=== PATIENT | female | born 1965 | race Caucasian/White ===

== ENCOUNTER → 2019-02-03 | Outpatient (CLI) | payer OTHER ==
[~2019-02-03] MED LIST: ABAC300; ACET500 PO; ACETAMINOPHEN; ALBU90OI INH; ALPR.5 PO; AMIT75 PO; AZIT250 PO; Acidophilus La100 GM PO; BENZ100A PO; BUPR150ER PO; BUSP10 PO; CARI350; CARI350 PO; CEPH250A PO; CEPH500 PO; CLIN300 PO; CLON.2 PO; CLON1 PO; CYCL10 PO; DIVA500EC PO; DOCU100 PO; ERGO400 PO; FLUO10 PO; FLUO20 PO; GABA100; GABA300 PO; HYDACE5 PO; HYDACE5325 PO; HYDPAM25 PO; HYDROCODONE; Hydroxyzine HCl50 MG PO; IBUP200; Klonopin0.5 MG PO; LAMO25 PO; LEVO750 PO; METPHE10 PO; MIRALAX17 GM PO; MULVITMIND PO; NAPR220; NAPR500; OXYACE5C; OXYACE5T PO; OXYACE7.5T PO; POLYIRON PO; POTA10T PO; PRAZ2; PRAZ2 PO; PRED20 PO; Prednisone20 MG PO; ROBITUSSIN100 MG/5 M PO; ROXICODONE5 MG PO; RXHYDACE PO; RXOXYACE PO; RXTRAM50 PO; SUBOXONE 4 MG-1 EACH SL; SUMATRIPTAN-NA1 EACH PO; TOPI25; TRAM50 PO; Ultram50 MG PO; VERSED; WATER PILL
[2019-02-03 19:58] LABS: BASOPHILS ABSOLUTE AUTO 0.05 K/mm3 (0.00-0.23); BASOPHILS PERCENT AUTO 1 % (0-2); EOSINOPHILS ABSOLUTE AUTO 0.09 K/mm3 (0.00-0.68); EOSINOPHILS PERCENT AUTO 1 % (0-6); Hematocrit 40.9 % (33.0-51.0); Hemoglobin 12.5 g/dL (11.5-16.0); IMMATURE GRAN ABSOLUTE AUTO 0.01 K/mm3 (0.00-0.10); IMMATURE GRAN PERCENT AUTO 0 % (0-1); LYMPHOCYTES ABSOLUTE AUTO 1.63 K/mm3 (0.84-5.20); LYMPHOCYTES PERCENT AUTO 25 % (21-46); MONOCYTES ABSOLUTE AUTO 0.49 K/mm3 (0.16-1.47); MONOCYTES PERCENT AUTO 8 % (4-13); Mean Corpuscular HGB 28.2 pg (26.0-34.0); Mean Corpuscular HGB Conc 30.6 g/dL (31.5-36.5); Mean Corpuscular Volume 92 fL (80-100); Mean Platelet Volume 11.8 fL (9.1-12.4); NEUTROPHILS ABSOLUTE AUTO 4.26 K/mm3 (1.96-9.15); NEUTROPHILS PERCENT AUTO 65 % (41-73); Platelet Count 166 K/mm3 (150-400); RDW Coefficient Variation 18.8 % (11.7-14.2); RDW Standard Deviation 63.7 fL (35.1-46.3); Red Blood Cell Count 4.44 M/mm3 (3.80-5.20); White Blood Cell Count 6.53 K/mm3 (4.00-11.30)
[2019-02-03 20:23] LABS: Alanine Aminotransfer (ALT/SGP 80 U/L (12-78); Albumin, Blood 3.4 g/dL (3.4-5.0); Albumin/Globulin Ratio 0.9 (0.8-1.8); Alk Phos 189 U/L (50-136); Anion Gap 2 mmol/L (6-16); Aspartate Aminotrans (AST/SGOT 74 U/L (12-37); Bilirubin, Total 0.6 mg/dL (0.1-1.0); Blood Urea Nitrogen 15 mg/dL (8-24); Bun/Creatinine Ratio 19.4 (12.0-20.0); CO2, Blood 29 mmol/L (21-32); Calcium, Blood 8.7 mg/dL (8.5-10.1); Chloride, Blood 108 mmol/L (98-108); Creatinine, Blood 0.77 mg/dL (0.40-1.00); Globulin, Blood 3.9 g/dL (2.2-4.0); Glomerular Filtration Rate >60 (60-); Glucose, Blood 98 mg/dL (70-99); Potassium, Blood 3.8 mmol/L (3.5-5.5); Sodium, Blood 139 mmol/L (136-145); Total Protein, Blood 7.3 g/dL (6.4-8.2)
== END | disposition home or self-care (01) ==
LOC: LAB 19:18 → LAB SHORT 19:18
PROVIDERS: Nurse Practitioner
DX: N93.9 Abnormal uterine and vaginal bleeding, unspecified (principal); R31.9 Hematuria, unspecified; R10.2 Pelvic and perineal pain
CPT/HCPCS: 80053; 85025; 87086

== ENCOUNTER 2019-03-05 21:49 | Emergency (ER) | payer OTHER ==
[~2019-03-05] VITALS: Ht 165.1 cm; Wt 94.8 kg
[~2019-03-05 21:49] MED LIST changes: -ACET500 PO; -GABA100; -POTA10T PO; -SUBOXONE 4 MG-1 EACH SL; -TOPI25; -WATER PILL
[2019-03-05] MEDS ORDERED: TOPI25 (22:02)
[2019-03-05] MEDS ORDERED: SUBOXONE 4 MG-1 EACH SL (22:02)
[2019-03-05] MEDS ORDERED: GABA100 (22:02)
[2019-03-05] MEDS ORDERED: WATER PILL (22:03)
[2019-03-05] MEDS ORDERED: POTA10T PO (22:03)
[2019-03-05] MEDS ORDERED: ACET500 PO (22:53)
== END 2019-03-05 23:10 | disposition home or self-care (01) ==
LOC: ER 21:49
DX: S20.212A Contusion of left front wall of thorax, initial encounter (principal); S80.212A Abrasion, left knee, initial encounter; F41.9 Anxiety disorder, unspecified; Z86.19 Personal history of other infectious and parasitic diseases; Z88.0 Allergy status to penicillin; Z88.5 Allergy status to narcotic agent; Z88.6 Allergy status to analgesic agent; Z79.899 Other long term (current) drug therapy; Z87.891 Personal history of nicotine dependence; W06.XXXA Fall from bed, initial encounter
CPT/HCPCS: 71046; 73564; 73610; 99283-25

== ENCOUNTER 2020-09-13 22:06 | Emergency (ER) | payer OTHER ==
[~2020-09-13] VITALS: Ht 167.6 cm; Wt 59.9 kg
[~2020-09-13 22:06] MED LIST changes: +ACET500 PO; +GABA100; +POTA10T PO; +SUBOXONE 4 MG-1 EACH SL; +TOPI25; +WATER PILL
== END 2020-09-13 23:33 | disposition home or self-care (01) ==
LOC: ER 22:06
DX: S93.602A Unspecified sprain of left foot, initial encounter (principal); F17.210 Nicotine dependence, cigarettes, uncomplicated; Z79.899 Other long term (current) drug therapy; Z88.0 Allergy status to penicillin; Z88.5 Allergy status to narcotic agent; Z88.6 Allergy status to analgesic agent; X50.1XXA Overexertion from prolonged static or awkward postures, initial encounter
CPT/HCPCS: 29515; 73630; 99283-25

== ENCOUNTER 2020-12-18 22:52 | Emergency (ER) | payer OTHER ==
[~2020-12-18] VITALS: Ht 167.6 cm; Wt 60.8 kg
== END 2020-12-19 01:38 | disposition home or self-care (01) ==
LOC: ER 22:52
DX: S20.211A Contusion of right front wall of thorax, initial encounter (principal); Z87.891 Personal history of nicotine dependence; Z88.0 Allergy status to penicillin; Z88.5 Allergy status to narcotic agent; Z88.6 Allergy status to analgesic agent; W01.198A Fall on same level from slipping, tripping and stumbling with subsequent striking against other object, initial encounter; Y92.59 Other trade areas as the place of occurrence of the external cause
CPT/HCPCS: 71046; 96372; 99283-25; J1885

== ENCOUNTER 2021-09-19 18:01 | Emergency (ER) | payer OTHER ==
[~2021-09-19] VITALS: Ht 167.6 cm; Wt 59.0 kg
== END 2021-09-19 21:03 | disposition home or self-care (01) ==
LOC: ER 18:01
DX: M54.2 Cervicalgia (principal); G47.419 Narcolepsy without cataplexy; Z88.0 Allergy status to penicillin; Z88.5 Allergy status to narcotic agent; Z88.6 Allergy status to analgesic agent; Z79.899 Other long term (current) drug therapy; Z87.891 Personal history of nicotine dependence; W19.XXXA Unspecified fall, initial encounter
CPT/HCPCS: 70450; 72040; 99283-25; L0160

== ENCOUNTER 2021-12-30 20:59 | Emergency (ER) | payer OTHER ==
[~2021-12-30] VITALS: Ht 167.6 cm; Wt 59.0 kg
== END 2021-12-31 03:20 | disposition home or self-care (01) ==
LOC: ER 20:59
DX: S01.01XA Laceration without foreign body of scalp, initial encounter (principal); S01.111A Laceration without foreign body of right eyelid and periocular area, initial encounter; S10.93XA Contusion of unspecified part of neck, initial encounter; Y09 Assault by unspecified means; Z88.0 Allergy status to penicillin; Z88.5 Allergy status to narcotic agent; Z88.6 Allergy status to analgesic agent; Z79.899 Other long term (current) drug therapy; Z87.891 Personal history of nicotine dependence; Z23 Encounter for immunization
CPT/HCPCS: 70450; 72125; 90714; A9270; J1200; J2765

== ENCOUNTER 2022-01-07 16:21 | Emergency (ER) | payer OTHER ==
[~2022-01-07] VITALS: Ht 167.6 cm; Wt 59.0 kg
== END 2022-01-07 18:01 | disposition home or self-care (01) ==
LOC: ER 16:21
DX: Z48.02 Encounter for removal of sutures (principal); R11.0 Nausea; Z88.0 Allergy status to penicillin; Z88.5 Allergy status to narcotic agent; Z88.6 Allergy status to analgesic agent; Z79.899 Other long term (current) drug therapy; Z87.891 Personal history of nicotine dependence
CPT/HCPCS: A9270; J1885

== ENCOUNTER 2022-06-19 10:16 | Inpatient (IN) | payer OTHER ==
[~2022-06-19] VITALS: Ht 172.7 cm; Wt 64.8 kg
[2022-06-19 11:39] LABS: BASOPHILS ABSOLUTE AUTO 0.01 K/mm3 (0.00-0.23); BASOPHILS PERCENT AUTO 0 % (0-2); EOSINOPHILS ABSOLUTE AUTO 0.01 K/mm3 (0.00-0.68); EOSINOPHILS PERCENT AUTO 0 % (0-6); Hematocrit 31.4 % (33.0-51.0); Hemoglobin 10.9 g/dL (11.5-16.0); IMMATURE GRAN ABSOLUTE AUTO 0.02 K/mm3 (0.00-0.10); IMMATURE GRAN PERCENT AUTO 0 % (0-1); LYMPHOCYTES ABSOLUTE AUTO 0.43 K/mm3 (0.84-5.20); LYMPHOCYTES PERCENT AUTO 9 % (21-46); MONOCYTES ABSOLUTE AUTO 0.13 K/mm3 (0.16-1.47); MONOCYTES PERCENT AUTO 3 % (4-13); Mean Corpuscular HGB 38.2 pg (26.0-34.0); Mean Corpuscular HGB Conc 34.7 g/dL (31.5-36.5); Mean Corpuscular Volume 110 fL (80-100); Mean Platelet Volume 10.1 fL (9.1-12.4); NEUTROPHILS ABSOLUTE AUTO 4.44 K/mm3 (1.96-9.15); NEUTROPHILS PERCENT AUTO 88 % (41-73); Platelet Count 123 K/mm3 (150-400); RDW Coefficient Variation 13.1 % (11.7-14.2); RDW Standard Deviation 52.6 fL (35.1-46.3); Red Blood Cell Count 2.85 M/mm3 (3.80-5.20); White Blood Cell Count 5.04 K/mm3 (4.00-11.30)
[2022-06-19] MEDS ORDERED: DYAZIDE 37.5-21 EACH PO (11:52)
[2022-06-19] MEDS ORDERED: ALBU90OI INH (11:53)
[2022-06-19] MEDS ORDERED: POTA10T PO (11:53)
[2022-06-19] MEDS ORDERED: NICO21TP TOP (11:53)
[2022-06-19] MEDS ORDERED: LATUDA20 M1 PO (11:53)
[2022-06-19] MEDS ORDERED: FOLI1 PO (11:53)
[2022-06-19] MEDS ORDERED: GABA300 PO ×2 (11:53→11:56)
[2022-06-19] MEDS ORDERED: TRAZ50 PO (11:54)
[2022-06-19] MEDS ORDERED: PROM25 PO (11:54)
[2022-06-19] MEDS ORDERED: METO25ER PO (11:54)
[2022-06-19] MEDS ORDERED: CATAPRES-TTS 11 EAC1 TOP (11:54)
[2022-06-19] MEDS ORDERED: Prozac40 MG PO (11:55)
[2022-06-19] MEDS ORDERED: Cyclobenzaprine5 MG PO (11:55)
[2022-06-19] MEDS ORDERED: MODA200 PO (11:55)
[2022-06-19] MEDS ORDERED: HYDPAM50 PO (11:55)
[2022-06-19] MEDS ORDERED: TOPI100 PO (11:55)
[2022-06-19] MEDS ORDERED: NARA2.5 (11:55)
[2022-06-19] MEDS ORDERED: METPHE20CR PO (11:56)
[2022-06-19] MEDS ORDERED: BUDESONIDE0.5 MG/2 M INH (11:56)
[2022-06-19] MEDS ORDERED: LORA.5 PO (11:56)
[2022-06-19] MEDS ORDERED: SUBOXONE 8 MG-1 EACH SL (11:56)
[2022-06-19 12:09] LABS: Magnesium, Blood 1.8 mg/dL (1.6-2.4)
[2022-06-19 12:41] LABS: Alanine Aminotransfer (ALT/SGP 28 U/L (12-78); Albumin/Globulin Ratio 1.1 (0.8-1.8); Alk Phos 153 U/L (50-136); Anion Gap 5 mmol/L (6-16); Aspartate Aminotrans (AST/SGOT 33 U/L (12-37); Bilirubin, Total 0.4 mg/dL (0.1-1.0); Blood Urea Nitrogen 13 mg/dL (8-24); Bun/Creatinine Ratio 25.3 (12.0-20.0); CO2, Blood 23 mmol/L (21-32); Calcium, Blood 8.2 mg/dL (8.5-10.1); Chloride, Blood 107 mmol/L (98-108); Creatinine, Blood 0.51 mg/dL (0.40-1.00); Ethanol (Alcohol), Blood, Med <3 mg/dL; Globulin, Blood 2.7 g/dL (2.2-4.0); Glomerular Filtration Rate 110 (60-); Glucose, Blood 117 mg/dL (70-99); Potassium, Blood 3.6 mmol/L (3.5-5.5); Sodium, Blood 135 mmol/L (136-145); Total Protein, Blood 5.7 g/dL (6.4-8.2)
[2022-06-19 14:24] LABS: Source, Urine Straight Cath
[2022-06-19 14:28] LABS: Appearance, Urine Cloudy (Clear); Bilirubin, Urine Neg (Neg); Blood, Urine 1+ (Neg); Glucose Qualitative, Urine Neg (Neg); Ketones, Urine Neg (Neg); Leukocyte Esterase, Urine Neg (Neg); Nitrite, Urine Neg (Neg); Protein, Urine Neg (Neg); Urobilinogen, Urine NORM (Normal)
[2022-06-19 14:34] LABS: Base Excess Venous -1.1 mmol/L; Bicarbonate Venous 23.2 mmol/L (24.0-30.0); PCO2 Venous 46.2 mmHg (38-42); pH Blood Venous 7.34 (7.34-7.37)
[2022-06-19 14:38] LABS: Color, Urine Pale Yellow (P-Yellow)
[2022-06-19 14:42] LABS: Bacteria Mod /hpf; Red Blood Cells, Urine 0-2 /hpf (0-2); Squamous Epithelial Cells Rare /hpf (Few)
[2022-06-19 15:47] LABS: U Amphetamine Screen Not Detected; U Barbituate Screen Not Detected; U Benzodiazapine Screen DETECTED; U Buprenorphine Screen DETECTED; U Cannabinoids Screen Not Detected; U Cocaine Screen Not Detected; U Methadone Screen Not Detected; U Methamphetamine Screen Not Detected; U Opiates Screen Not Detected; U Oxycodone Screen Not Detected; U Phencyclidine Screen Not Detected; U Propoxyphene Screen Not Detected
--- NOTE | 2022-06-19 17:24 | NUR ---
PT ARRIVES TO ICU BED 1 @ 1700, PT ANSWERS TO HER NAME, PT STATES SHE IS AT THE HOSPITAL, THAT IT IS AUGUST 18, 2020, THAT HER LAST DRINK WAS TODAY, AND THAT SHE HAS HISTORY OF SEIZURES WITH ALCOHOL USE. PT ASKS ABOUT HER LOWER DENTURES, ED REPORTS PATIENT ARRIVED WITH ONLY THE SCRUBS SHE WAS WEARING. FOLIC ACID INFUSED, THIAMINE HUNG, PRECEDEX @ 0.2MCG/KG. SEE ASSESSMENT.
[2022-06-19] MEDS ORDERED: NICOTINE LOZENGE2 MG MM (17:35)
[2022-06-19] MEDS ORDERED: IBUP400 PO (17:36)
[2022-06-19] MEDS ORDERED: ACET500 PO (17:37)
[2022-06-19] MEDS ORDERED: CATAPRES0.1 MG PO (17:39)
[2022-06-19] MEDS ORDERED: SYMBICORT 160-4.6 GM INH (17:44)
--- NOTE | 2022-06-19 18:59 | NUR ---
GELA HAS BEEN SLEEPING SINCE ADMISSION. SHE IS ON PRECEDEX @ 0.2MCG/KG. JUST PHONED IN, ASKED TO SPEAK WITH HER. INFORMED THAT SHE WAS SLEEPING AND HE SAID, "THANK YOU". NOTHING FURTHER.
--- NOTE | 2022-06-20 03:53 | NUR ---
PT TONIGHT HAD AN OUTBURST AROUND 2300 ATTEMPTING TO GET OUT OF BED AND DEMANDING FOOD/WATER. PT WITH EYES STILL CLOSED THE ENTIRE TIME SHES ATTEMPTING TO GET OUT OF BED AND CONFUSED. CIWA SCORE OF 9. 25 OF LIBRIUM GIVEN PER MAR. INCREASED DEX WELL. SEE ICU FLOWSHEET AND MAR. VSS. BPS SOFTER WHEN SLEEPING, MAPS >65. HR WNL. NSR. NO OTHER SIGNIFICANT EVENTS OVERNIGHTS.
--- NOTE | 2022-06-20 07:37 | NUR ---
Dorothea has awakened and asked for water. Her swallow is not compromised. Will continue to monitor and treat.
--- NOTE | 2022-06-20 07:57 | NUR ---
precedex is on standby, pt oriented, talking on the phone with family.
--- NOTE | 2022-06-20 12:09 | NUR ---
PT APPEARS TO BE SLEEPING, HAVE BEEN CHECKING ON HER AND SHE IS RESTFUL. NO COMPLAINTS AT THIS TIME.
--- NOTE | 2022-06-20 13:49 | NUR ---
GELA IS AWAKE AND FIESTY. SHE IS ASKING ABOUT HER MEDICATIONS, WHEN TOLD THAT THEY HAVE BEEN ORDERED TO START TONIGHT, SHE BECAME AGIATED. IT WAS EXPLAINED TO HER THAT SHE CAME IN UNCONSCIOUS AND HER MEDICATIONS WEREN'T GOING TO BE RESTARTED WITHOUT SEEING EVIDENCE OF IMPROVEMENT. WITH HER EATING AND DRINKING WELL NOW, HER MEDICATIONS ARE BEING RESTARTED. SHE EXPRESSES THAT SHE "GOES IN TO GET HELP AND THEY KILL ME!". THERAPEUTIC LISTENING AND POSITIVE REINFORCEMENT GIVEN.
--- NOTE | 2022-06-20 14:44 | NUR ---
GELA IS AWAKE AND COMMUNICATING CLEARLY, HER SON WAS JUST IN TO VISIT. HER CATHETER HAS BEEN REMOVED, PANTIES AND PJ PANTS ARE NOW ON FOR HER COMFORT. SHE IS BEING MORE COOPERATIVE AND HELPING WITH HER CARE. SHE HAS BEEN ASKED TO CALL BEFORE GETTING UP FOR THE FIRST TIME. CONTINUES TO SAY HER BELLY IS "SORE". SHE WONDERED IF SHE HAD THROWN UP OR IF SOMEONE HAD "MANHANDLED" HER.
--- NOTE | 2022-06-20 15:55 | NUR ---
UP TO THE BATHROOM, STEADY ON HER FEET. DAUGHTER IN TO VISIT, BROUGHT PATIENT SOME SODA POP'S.
--- NOTE | 2022-06-20 17:57 | NUR ---
PT REMAINS CALM AND COOPERATIVE. INDEPENDENT IN ROOM. DINNER TRAY ORDERED. CIWA <10, LIBRIUM PER PT REQUEST.
[2022-06-21 04:47] LABS: BASOPHILS ABSOLUTE AUTO 0.02 K/mm3 (0.00-0.23); BASOPHILS PERCENT AUTO 0 % (0-2); EOSINOPHILS ABSOLUTE AUTO 0.06 K/mm3 (0.00-0.68); EOSINOPHILS PERCENT AUTO 1 % (0-6); Hematocrit 32.6 % (33.0-51.0); Hemoglobin 11.3 g/dL (11.5-16.0); IMMATURE GRAN ABSOLUTE AUTO 0.05 K/mm3 (0.00-0.10); IMMATURE GRAN PERCENT AUTO 1 % (0-1); LYMPHOCYTES PERCENT AUTO 21 % (21-46); MONOCYTES PERCENT AUTO 9 % (4-13); Mean Corpuscular HGB Conc 34.7 g/dL (31.5-36.5); Mean Corpuscular Volume 112 fL (80-100); Mean Platelet Volume 10.9 fL (9.1-12.4); NEUTROPHILS ABSOLUTE AUTO 4.02 K/mm3 (1.96-9.15); NEUTROPHILS PERCENT AUTO 69 % (41-73); Platelet Count 131 K/mm3 (150-400); RDW Coefficient Variation 13.7 % (11.7-14.2); RDW Standard Deviation 56.6 fL (35.1-46.3); White Blood Cell Count 5.85 K/mm3 (4.00-11.30)
--- NOTE | 2022-06-21 04:49 | NUR ---
END OF SHIFT REPORT NEURO: A&OX4. PT CLAIMS NUMBNESS/TINGLING TO FINGERTIPS. DENIES HEADACHE OR VISION CHANGES. ABLE TO DISCERN SHARP/DULL SENSATIONS IN ALL FOUR EXTREMITIES. AND ALL FOUR LIMBS ABLE TO OVERCOME RESISTANCE. PUPILS 4MM PERRLA. RESPIRATORY: RA. SATTING >95%. BREATH SOUNDS CLEAR. PT DENIES SOB/DYSPNEA. CARDIAC: HR 60s. BP 100s/70s WITH MAPs >65. PT DENIES CHEST PAIN. CAP REFILL < 3 SECONDS. GI/: CONTINENT. HYPOACTIVE BOWEL SOUNDS. PT CLAIMS HER ABDOMEN FEELS LIKE SOMEONE GAVE HER A "BEAR HUG" AND THAT HER MUSCLES AROUND ABDOMEN ACHE. URGENCY AND FREQUENCY OF BLADDER. PUTTING OUT ADEQUATE AMOUNTS OF CLEAR YELLOW URINE. MUSCULOSKELETAL: INDEPENDENT IN ROOM. INTEGUMENTARY: INTACT.
[2022-06-21 05:16] LABS: Albumin, Blood 2.5 g/dL (3.4-5.0); Anion Gap 7 mmol/L (6-16); Blood Urea Nitrogen 16 mg/dL (8-24); Bun/Creatinine Ratio 23.4 (12.0-20.0); CO2, Blood 25 mmol/L (21-32); Calcium, Blood 7.9 mg/dL (8.5-10.1); Chloride, Blood 106 mmol/L (98-108); Creatinine, Blood 0.69 mg/dL (0.40-1.00); Glomerular Filtration Rate 102 (60-); Glucose, Blood 98 mg/dL (70-99); Magnesium, Blood 2.1 mg/dL (1.6-2.4); Potassium, Blood 3.4 mmol/L (3.5-5.5); Sodium, Blood 138 mmol/L (136-145)
--- NOTE | 2022-06-21 17:06 | NUR ---
SHIFT SUMMARY PT IS ALERT AND ORIENTED X 4, SHE IS ABLE TO MAKE HER NEEDS KNOWN AND ANSWERS QUESTIONS APPROPRIATELY. SHE DOES APPEAR TREMULOUS AT TIMES BUT THERE WAS NO INDICATION THAT CIWA'S WERE NECESSARY. SHE HAS BEEN A SBA IN ROOM AND IS STEADY ON HER FEET. VSS, SPO2 >95% VIA ROOM AIR. THIS AM SHE REPORTED FEELING SOB UPON INSPIRATION DUE TO ABD PAIN, PLEASE SEE EMAR FOR PAIN MANAGEMENT. THIS NURSE MADE DR. CANELA AWARE THAT PT WAS HAVING ABD PAIN AND THAT PT REPORTED NOT HAVING BM SINCE ADMISSION. BOWEL CARE ORDERED. PT ENCOURAGED TO DRINK WATER AND PRUNE JUICE WELL. SHE REPORTED FEELING SLIGHTLY NAUSEOUS THIS AM BUT HAS HAD A GOOD APPETITE. DRY, NON-PRODUCTIVE COUGH NOTED. NO OTHER ACUTE CHANGES NOTED. PT IS NOW SITTING UP IN BED EATING DINNER. CALL LIGHT IS IN REACH. WILL CONTINUE TO MONITOR UNITL REPORT GIVEN.
--- NOTE | 2022-06-21 19:33 | NUR ---
ASSUMED CARE. AOX3, COOPERATIVE. INDEPENDENT IN THE ROOM. REPORTS ABDOMINAL PAIN WHEN SHE MOVES OR TRYS TO SIT UP. STATES IT FEELS LIKE SHE HAS BEEN VOMITING HARD BUT SHE HASN'T. ONLY HURTS WHEN SHE TAKES A DEEP BREATH OR WITH MOVEMENT. BELCHING NOTED, SMALL BM TODAY. NOT PASSING GAS. TOLERATING DIET, STATES APPETITE GOOD. VITALS STABLE AT THE MOMENT. WILL CONTINUE TO MONITOR. CALL LIGHT IN REACH.
[2022-06-22 04:37] LABS: BASOPHILS ABSOLUTE AUTO 0.02 K/mm3 (0.00-0.23); BASOPHILS PERCENT AUTO 0 % (0-2); EOSINOPHILS ABSOLUTE AUTO 0.04 K/mm3 (0.00-0.68); EOSINOPHILS PERCENT AUTO 1 % (0-6); Hematocrit 31.7 % (33.0-51.0); Hemoglobin 10.5 g/dL (11.5-16.0); IMMATURE GRAN ABSOLUTE AUTO 0.04 K/mm3 (0.00-0.10); IMMATURE GRAN PERCENT AUTO 1 % (0-1); LYMPHOCYTES ABSOLUTE AUTO 0.82 K/mm3 (0.84-5.20); LYMPHOCYTES PERCENT AUTO 15 % (21-46); MONOCYTES ABSOLUTE AUTO 0.41 K/mm3 (0.16-1.47); MONOCYTES PERCENT AUTO 7 % (4-13); Mean Corpuscular HGB 38.3 pg (26.0-34.0); Mean Corpuscular HGB Conc 33.1 g/dL (31.5-36.5); Mean Corpuscular Volume 116 fL (80-100); NEUTROPHILS PERCENT AUTO 76 % (41-73); Platelet Count 122 K/mm3 (150-400); RDW Coefficient Variation 14.2 % (11.7-14.2); Red Blood Cell Count 2.74 M/mm3 (3.80-5.20); White Blood Cell Count 5.53 K/mm3 (4.00-11.30)
[2022-06-22 05:15] LABS: Albumin, Blood 2.3 g/dL (3.4-5.0); Anion Gap 5 mmol/L (6-16); Blood Urea Nitrogen 14 mg/dL (8-24); Bun/Creatinine Ratio 23.3 (12.0-20.0); CO2, Blood 23 mmol/L (21-32); Calcium, Blood 7.8 mg/dL (8.5-10.1); Chloride, Blood 110 mmol/L (98-108); Glomerular Filtration Rate 106 (60-); Glucose, Blood 156 mg/dL (70-99); Phosphorus, Blood 3.8 mg/dL (2.5-4.9); Potassium, Blood 3.7 mmol/L (3.5-5.5); Sodium, Blood 138 mmol/L (136-145)
--- NOTE | 2022-06-22 05:21 | NUR ---
SHIFT SUMMARY: PT HAS BEEN COOPERATIVE AND PLEASANT. INDEPENDENT IN THE ROOM. VS WNL. ONLY COMPLAINT IS SOME ABDOMINAL PAIN THAT COMES AND GOES. MORE INTENSE WHEN SHE IS MOVEING OR TAKING A DEEP BREATH. STATES IT FEELS LIKE SHE HAS BEEN VOMITING AND PULLED MUSCLES. DID HAVE SMALL BOWEL MOVEMENT. GOOD APPETITE, SNACKING OFF AND ON. NO OTHER ACUTE CHANGES TO NOTE.
--- NOTE | 2022-06-22 07:13 | NUR ---
Assumed care of pt at 0700. Report received from Sheron BRIDGES. Pt A&O x 4. Answers questions, follows commands, verbalizes needs. Pleasant and cooperative with care. SpO2 100% on room air. Patient states that she feels withdrawals are over, but is concerned because she is experiencing abdominal tenderness. Offered pt prune juice; she declined and stated that she has had 3 large, normal for her, bowel movements. Offered pt heating pad and she accepted. Dr Stack in to see patient. Provider aware of abd pain and orders lipase levels. Provider okay with holding off on administering PO potassium until pt's abdominal pain lessens.
--- NOTE | 2022-06-22 08:45 | NUR ---
Notified Dr Stack of pt's lipase level. Provider to enter new orders. States that pt is still permitted to eat regular diet as she tolerates. May consider regressing diet if patient experiences worsening symptoms.
--- NOTE | 2022-06-22 11:42 | NUR ---
Patient stated concern that we are not prescribing her the amount of ritalin she takes at home. States that she takes 30 mg ritalin at 9 am and noon. Received records from [facility] that confirms this. Discussed with Dr Stack and ritalin order was changed to match pt's typical home dose.
[2022-06-22] MEDS ORDERED: FOLI1 PO (13:56)
[2022-06-22] MEDS ORDERED: NARATRIPTAN HCL1 MG PO (14:06)
--- NOTE | 2022-06-22 14:14 | NUR ---
Medication claim history for past 3 months received from [facility] which is pharmacy that patient uses. Medication reconciliation updated using medication claim history.
--- NOTE | 2022-06-22 14:32 | NUR ---
CARE SUMMARY Pt is medical floor status without telemetry. Originally planned for pt to go home today, however this was changed due to pt's abdominal pain and high lipase level with concern for pancreatitis. Patient reports pain in all abdominal quadrants, however worse in LUQ. Also reports back pain. No abdominal or flank bruising noted. Pt has been using hospital heating pad as she desires and requesting morphine. Pt continues with regular diet. Pt ate a large breakfast and reported feeling pain which she attributes to being "too full". For lunch time, educated pt on the role of the pancreas in digestion and how certain food choices can increase abdominal pain. Pt ate some of her lunch tray but also saved a large portion "for later". Patient is independent in room and tolerating activity well. Discussed patient's past history of substance use disorder and desires to remain sober from alcohol. Patient states that she and her are quitting together and this decision was made following an appointment with her primary care provider discussing "my liver is bad, worse than when I had hepatitis". She also states plan to persue inpatient alcohol rehab if her s/o begins drinking again "So i can have more sober time and learn more skills". Pt seems highly motivated to abstain from alcohol.
--- NOTE | 2022-06-22 15:16 | NUR ---
Assumed care at 1505. Report received from offgoing RN. Pt currently resting in bed, alert and oriented, on room air. Pt denies needs at this time, in no apparent distress. Will continue to monitor.
--- NOTE | 2022-06-22 17:44 | NUR ---
Transferred care to Jenifer BRIDGES at 1745. Pt in bed, at bedside. VS stable, no acute needs.
[2022-06-23 05:25] LABS: BASOPHILS ABSOLUTE AUTO 0.01 K/mm3 (0.00-0.23); BASOPHILS PERCENT AUTO 0 % (0-2); EOSINOPHILS PERCENT AUTO 0 % (0-6); Hematocrit 31.4 % (33.0-51.0); Hemoglobin 10.6 g/dL (11.5-16.0); IMMATURE GRAN ABSOLUTE AUTO 0.08 K/mm3 (0.00-0.10); IMMATURE GRAN PERCENT AUTO 2 % (0-1); LYMPHOCYTES PERCENT AUTO 7 % (21-46); MONOCYTES ABSOLUTE AUTO 0.25 K/mm3 (0.16-1.47); MONOCYTES PERCENT AUTO 5 % (4-13); Mean Corpuscular HGB 38.1 pg (26.0-34.0); Mean Corpuscular HGB Conc 33.8 g/dL (31.5-36.5); Mean Corpuscular Volume 113 fL (80-100); Mean Platelet Volume 9.9 fL (9.1-12.4); NEUTROPHILS ABSOLUTE AUTO 4.67 K/mm3 (1.96-9.15); NEUTROPHILS PERCENT AUTO 86 % (41-73); Platelet Count 161 K/mm3 (150-400); RDW Coefficient Variation 13.8 % (11.7-14.2); RDW Standard Deviation 57.8 fL (35.1-46.3); Red Blood Cell Count 2.78 M/mm3 (3.80-5.20); White Blood Cell Count 5.41 K/mm3 (4.00-11.30)
--- NOTE | 2022-06-23 05:48 | NUR ---
SHIFT SUMMARY ICU TRANSFER ROUGHLY 0130. HAS BEEN FEBRILE SINCE TRANSFER, REPORTING "FEELING COLD" & SHIVERING. TEMP BEING 103.6 ORALLY @0130. GAVE 500MG PO TYLENOL & REMOVED SOME BLANKETS. TEMP 102.7, THEN 101.3-INFORMED DR SUAREZ NOT TIME FOR Q6 TYLENOL & HE ORDERED 1X DOSE 200MG IBPROPHEN. PO TEMP DECREASED TO 100.2. REST OF VITALS STABLE. AOX3-FORGETFUL @TIMES & SLOW TO RESPOND. HOWEVER DOES ANSWER APPROPRIATE. REPORTS SHARP 9/10 BILAT UPPER QUAD ABD PAIN, MEDICATED 2X c 2MG IV MORPHINE & PT ABLE TO REST COMFORTABLE. DENIES N/V. TOLERATING PO FLUIDS/MEDS. ACTIVE BT. REPORTED RAI @TRANSFER, WAS TREMULOUS & SLIGHTLY NONSENSICAL- CHECKED CIWA & GOT 8. HOWEVER PT HAD FEVER AT THIS TIME, CIWA 0 SINCE. CALL LIGHT IN REACH & PT ABLE TO MAKE NEEDS KNOWN. WILL MONITOR.
[2022-06-23 06:06] LABS: Magnesium, Blood 1.9 mg/dL (1.6-2.4)
[2022-06-23 06:07] LABS: Albumin, Blood 2.4 g/dL (3.4-5.0); Albumin/Globulin Ratio 0.8 (0.8-1.8); Bilirubin, Total 0.5 mg/dL (0.1-1.0); Bun/Creatinine Ratio 13.7 (12.0-20.0); Calcium, Blood 7.8 mg/dL (8.5-10.1); Creatinine, Blood 0.58 mg/dL (0.40-1.00); Globulin, Blood 3.1 g/dL (2.2-4.0); Potassium, Blood 3.6 mmol/L (3.5-5.5); Total Protein, Blood 5.5 g/dL (6.4-8.2)
[2022-06-23 16:44] LABS: Source, Urine Clean Catch
[2022-06-23 16:47] LABS: Appearance, Urine Clear (Clear); Bilirubin, Urine Neg (Neg); Blood, Urine 1+ (Neg); Color, Urine Yellow (P-Yellow); Glucose Qualitative, Urine Neg (Neg); Ketones, Urine Neg (Neg); Leukocyte Esterase, Urine Neg (Neg); Nitrite, Urine Neg (Neg); Protein, Urine Neg (Neg); Specific Gravity, Urine 1.015 (1.003-1.022); Urobilinogen, Urine 1+ (Normal)
[2022-06-23 17:03] LABS: Bacteria Few /hpf; Red Blood Cells, Urine 0-2 /hpf (0-2); Squamous Epithelial Cells Rare /hpf (Few); White Blood Cells, Urine 0-2 /hpf (0-5)
--- NOTE | 2022-06-24 03:56 | NUR ---
SHIFT SUMMARY PATIENT AOX4, IND TO BATHROOM. FEVER AT START OF SHIFT OF 102.3 MEDICATED WITH TYLENOL AND REMOVED HEAVY LINEN FROM BED. TEMP DOWN TO 100.1. MEDICATED FOR PAIN T/O SHIFT. TOLERATES WELL. VOIDING AND HAVING STOOLS THIS SHIFT. RECIEVING ABX FOR ACUTE PANCREATITIS. DENIES N/V, TOLERATE PO INTAKE. USES CALL LIGHT APPROPRIATELY, VSS.
[2022-06-24 05:11] LABS: BASOPHILS ABSOLUTE AUTO 0.02 K/mm3 (0.00-0.23); BASOPHILS PERCENT AUTO 0 % (0-2); EOSINOPHILS ABSOLUTE AUTO 0.01 K/mm3 (0.00-0.68); EOSINOPHILS PERCENT AUTO 0 % (0-6); Hematocrit 33.1 % (33.0-51.0); Hemoglobin 11.5 g/dL (11.5-16.0); IMMATURE GRAN ABSOLUTE AUTO 0.04 K/mm3 (0.00-0.10); IMMATURE GRAN PERCENT AUTO 1 % (0-1); LYMPHOCYTES ABSOLUTE AUTO 0.43 K/mm3 (0.84-5.20); LYMPHOCYTES PERCENT AUTO 8 % (21-46); MONOCYTES ABSOLUTE AUTO 0.28 K/mm3 (0.16-1.47); MONOCYTES PERCENT AUTO 5 % (4-13); Mean Corpuscular HGB Conc 34.7 g/dL (31.5-36.5); Mean Corpuscular Volume 112 fL (80-100); Mean Platelet Volume 9.7 fL (9.1-12.4); NEUTROPHILS ABSOLUTE AUTO 4.84 K/mm3 (1.96-9.15); NEUTROPHILS PERCENT AUTO 86 % (41-73); Platelet Count 190 K/mm3 (150-400); RDW Coefficient Variation 13.7 % (11.7-14.2); RDW Standard Deviation 56.8 fL (35.1-46.3); Red Blood Cell Count 2.95 M/mm3 (3.80-5.20); White Blood Cell Count 5.62 K/mm3 (4.00-11.30)
[2022-06-24 05:58] LABS: Albumin, Blood 2.4 g/dL (3.4-5.0); Albumin/Globulin Ratio 0.7 (0.8-1.8); Bilirubin, Total 0.4 mg/dL (0.1-1.0); Calcium, Blood 8.2 mg/dL (8.5-10.1); Creatinine, Blood 0.58 mg/dL (0.40-1.00); Globulin, Blood 3.3 g/dL (2.2-4.0); Magnesium, Blood 1.9 mg/dL (1.6-2.4); Phosphorus, Blood 2.5 mg/dL (2.5-4.9); Total Protein, Blood 5.7 g/dL (6.4-8.2)
[2022-06-24 14:49] LABS: Influenza A, PCR NEGATIVE (NEGATIVE); Influenza B, PCR NEGATIVE (NEGATIVE); Resp Syncytial Virus, PCR NEGATIVE (NEGATIVE); SARS-Cov-2 (COVID-19) PCR, MMC NEGATIVE (NEGATIVE)
[2022-06-24 17:43] LABS: Albumin, Blood 2.2 g/dL (3.4-5.0); Albumin/Globulin Ratio 0.7 (0.8-1.8); Bilirubin, Total 0.2 mg/dL (0.1-1.0); Bun/Creatinine Ratio 8.8 (12.0-20.0); Calcium, Blood 7.8 mg/dL (8.5-10.1); Creatinine, Blood 0.57 mg/dL (0.40-1.00); Globulin, Blood 3.2 g/dL (2.2-4.0); Potassium, Blood 3.7 mmol/L (3.5-5.5); Total Protein, Blood 5.4 g/dL (6.4-8.2)
--- NOTE | 2022-06-24 20:00 | NUR ---
C/O CHEST PAIN AT APPROXIMATELY 1700 PT CALLED TO REPORT NEW ONSET CP, SHE DESCRIBED IT SHARP AND PRESSURE POINTING TO EH MIDDLE OF HER CHEST AROUND HER STERNUM. TOE STRIPPER CALLED TO GET A SET OF VITALS AND EKG WHILE ATTENDING CALLED WITH UPDATE AND TO GET ORDERS. EKG SHOWED STEMI WHICH WAS GIVEN TO ICU TOE STRIPPER WHO ARRIVED PRIOR TO MD AND THEN IT WAS SHOWN TO MD. PT WAS GIVEN O2 FOR SOB, NITRO SL AT 1717 WITH 1MG ATIVAN PT WAS GETTING VERY ANXIOUS, THIS WAS GIVEN UNDER CIWA ORDER AND DISCUSSED WITH MD. TROPONINS AND CXR WERE BOTH ORDERED AND REVIEWED BY MD, PT REPORTED FEELING SOME RELIEF WITH NITRO. A SECOND DOSE OF NITRO WAS GIVEN AT 1851 WITH A 3RD GIVEN AT 1856 AFTER PT REPORTED THE CP COMING BACK. AFTER HER 3RD DOSE SHE REPORTED THAT THE PAIN WAS SUBSIDING AGAIN AND AT THE TIME OF THIS NOTE IT HAS YET TO COME BACK. PT WAS CLOSELY MONIOTRED T/O THIS TIME, A SECOND LINE WAS STARTED FOR IV ACCESS AND IT WAS NOTED THAT HER PRIMARY IV SITE WASINFILTRATED AND WAS REMOVED AFTER HER SECOND ACCESS WAS ESTABLISHED. PT IS NOW RESTING COMFORTABLY IN HER BED AND REPORT HAS BEEN GIVEN TO NOC RN WHO HAS ASSUMED CARE.
--- NOTE | 2022-06-24 21:37 | NUR ---
CHEST PAIN UPDATE LABS DRAWN AT 1999, TROPININ REMAINED UNCHANGED. CALLED TO UPDATE DR. MONTES, PLAN TO STAY ON SURGICAL UNIT AND REPEAT LABS AT 0000. IF LABS UNCHANGED NO NEED TO NOTIFY. PATIENT IS RESTING COMFORTABLY, DENIES CHEST PAIN, PRESSURE AND SOB AT THIS TIME. PATIENT IS SINUS RHYTHM @ 88 PER BOTTLE HOUSE QUALITY CONTROL TECHNICIAN.
[2022-06-25 00:37] LABS: BASOPHILS ABSOLUTE AUTO 0.03 K/mm3 (0.00-0.23); BASOPHILS PERCENT AUTO 0 % (0-2); EOSINOPHILS ABSOLUTE AUTO 0.02 K/mm3 (0.00-0.68); EOSINOPHILS PERCENT AUTO 0 % (0-6); Hematocrit 32.6 % (33.0-51.0); Hemoglobin 10.9 g/dL (11.5-16.0); IMMATURE GRAN ABSOLUTE AUTO 0.02 K/mm3 (0.00-0.10); IMMATURE GRAN PERCENT AUTO 0 % (0-1); LYMPHOCYTES ABSOLUTE AUTO 0.94 K/mm3 (0.84-5.20); LYMPHOCYTES PERCENT AUTO 12 % (21-46); MONOCYTES ABSOLUTE AUTO 0.56 K/mm3 (0.16-1.47); MONOCYTES PERCENT AUTO 7 % (4-13); Mean Corpuscular HGB 37.6 pg (26.0-34.0); Mean Corpuscular HGB Conc 33.4 g/dL (31.5-36.5); Mean Corpuscular Volume 112 fL (80-100); Mean Platelet Volume 9.9 fL (9.1-12.4); NEUTROPHILS ABSOLUTE AUTO 6.54 K/mm3 (1.96-9.15); NEUTROPHILS PERCENT AUTO 81 % (41-73); Platelet Count 218 K/mm3 (150-400); RDW Coefficient Variation 13.5 % (11.7-14.2); RDW Standard Deviation 56.5 fL (35.1-46.3); White Blood Cell Count 8.11 K/mm3 (4.00-11.30)
[2022-06-25 00:58] LABS: Albumin, Blood 2.3 g/dL (3.4-5.0); Albumin/Globulin Ratio 0.7 (0.8-1.8); Bilirubin, Total 0.3 mg/dL (0.1-1.0); Bun/Creatinine Ratio 11.7 (12.0-20.0); Creatinine, Blood 0.6 mg/dL (0.40-1.00); Globulin, Blood 3.3 g/dL (2.2-4.0); Magnesium, Blood 1.8 mg/dL (1.6-2.4); Phosphorus, Blood 3.3 mg/dL (2.5-4.9); Potassium, Blood 3.6 mmol/L (3.5-5.5); Total Protein, Blood 5.6 g/dL (6.4-8.2)
--- NOTE | 2022-06-25 05:32 | NUR ---
SHIFT SUMMARY PATIENT HAD ACUTE CHEST PAIN AT START OF SHIFT THAT RESOLVED AFTER NITRO WAS GIVEN. SEE PREVIOUS NURSES NOTES. PATIENT HAS HAD FEVERS T/O SHIFT AND WAS MEDICATED WITH TYLENOL. COMPLAINTS OF ABD PAIN REQUIRING ROXICODONE ALONG WITH BOOKKEEPING SERVICE SALES AGENT MORPHINE. CONTINUING ABX AT THIS TIME. TROPININ SERIES COMPLETED THIS AM AWAITING FINAL RESULTS. PATIENT AMBULATORY IN ROOM, VOIDS EASILY, NO COMPLAINTS OF CHEST PAIN, ONLY SOB WHEN HAVING ABD PAIN. O2 SATS 99% ON RA. RESP RATE 18. TOLERATING EATING AND DRINKING. VSS, TEMP AT 98.7 THIS AM. CALL LIGHT IN REACH. WILL REPORT TO DAY RN.
--- NOTE | 2022-06-25 06:08 | NUR ---
WHEAT BUYER THIS RN NOTICED THE WHEAT BUYER SETTING AT 0.4MG DOSE WHEN CLEARING PUMP AT END OF SHIFT. DOSAGE IS ORDRED ON EMR 0.2MG. THERE IS NO NOTES SPECIFIED REASON TO CHANGE DOSAGE. ONLY VERBAL NOTIFICATION FROM DAY SHIFT RN. PENDING CLARIFICATION FROM PREVIOUS RN, WHEAT BUYER DOSAGE IS PUT BACK TO 0.2MG.
--- NOTE | 2022-06-25 16:06 | NUR ---
WASTED 0.5 TABS OF MODAFINIL WITH YULIANA GREER.
--- NOTE | 2022-06-25 17:34 | NUR ---
SUMMARY PT HAD TEMP OF 102.3 THIS AFTERNOON, MEDICATED PER ORDERS W/TYLENOL, TEMP DROPPED TO 100.3. PT HAD REDDENED AREA W/FIRMNESS, REC'D REPORT IT WAS FROM PREVIOUS IV SITE. LOCATED IN [facility]. NOTIFIED DR AGUILAR THAT IT LOOKS LIKE PURULENT SPOT DEVELOPING. PT PAINFUL T/O SHIFT. USING CURING OVEN TENDER AND RECEIVING PO PAIN MEDS PER ORDERS FOR BACK PAIN. OFFERED ICE PACK FOR COMFORT. PT REPORTED KPAD HELPED BUT DID NOT PROVIDE DUE TO TEMPERATURE. CALL LIGHT AND CURING OVEN TENDER IN REACH.
[2022-06-25 19:57] LABS: Vancomycin, Trough 7.7 ug/mL (5.0-10.0)
--- NOTE | 2022-06-26 04:16 | NUR ---
SHIFT SUMMARY NO ACUTE CHANGES THIS SHIFT. PT CONT TO REPORT A HEADACHE DESPITE TYLENOL + NEW TORADOL ORDER. PT STILL USING MORPHINE LIQUID COMPOUNDER AND RECEIVING ORAL ROXICODONE FOR ABD PAIN. JEISON REG DIET. REPORTS CONSTANT NAUSEA, BUT NO EMESIS. INDEP TO BSC. IV ABX PER ORDERS. USES CALL LIGHT APPROPRIATELY. IRRITABLE AT TIMES, BUT COOPERATIVE.
--- NOTE | 2022-06-26 10:30 | NUR ---
WASTED 0.5 TAB SAMANTHA w/ Ashli SBEASTIAN
--- NOTE | 2022-06-26 13:55 | NUR ---
PT REPORTED BRIEF PERIOD OF MIDEPIGASTRIC PAIN TELE SHOWED PT IS IN NSR @ 86 W/NO EVENTS. NOTIFIED DR AGUILAR.
--- NOTE | 2022-06-26 17:43 | NUR ---
SUMMARY NO ACUTE CHANGES T/O SHIFT. PT TOLERATING REGULAR DIET. INDEPENDENT IN ROOM. TELE SHOWS SR. PT REPORTED MIDEPIGASTRIC PAIN AT ONE POINT DURING SHIFT BUT NO EVENTS WERE NOTED ON TELE. PT'S VSS. PT REMOVED BATTERIES FROM TELE, EDUCATED TO LEAVE TELE INTACT TO PROVIDE ACCURATE MONITORING. VERBALIZED UNDERSTANDING. PT'S SWEEPING COMPOUND BLENDER CHANGED PER ORDERS FROM MORPHINE TO DILAUDID. PT VOICED FRUSTRATION THAT DID NOT FEEL GETTING ADEQUATE PAIN MANAGEMENT. NOTIFIED DR AND CONTINUOUS ADDED TO SWEEPING COMPOUND BLENDER ORDERS. MEDICATED PER ORDERS W/ROXICODONE AND TYLENOL IN ADDITION TO SWEEPING COMPOUND BLENDER. PT TOLERATING REGULAR DIET. INDEPENDENT IN ROOM. CALL LIGHT AND SWEEPING COMPOUND BLENDER IN REACH.
--- NOTE | 2022-06-27 04:23 | NUR ---
SHIFT SUMMARY NO ACUTE CHANGES. PT CONT TO REPORT / ABD/BACK PAIN DESPITE DILAUDID SALES OPERATIONS LEAD + ORAL TYLENOL + 2 ROXICODONE PRN. ICE PACK TO BACK FOR COMFORT. IV ABX PER ORDERS. PT TOLERATING REG DIET. DENIES N/V. INDEP IN ROOM. CAN BE IRRITABLE AT TIMES, BUT IS COOPERATIVE. USES CALL LIGHT APPRORPRIATELY.
[2022-06-27 06:10] LABS: Vancomycin, Trough 14.8 ug/mL (5.0-10.0)
[2022-06-27 09:12] LABS: BASOPHILS ABSOLUTE AUTO 0.04 K/mm3 (0.00-0.23); BASOPHILS PERCENT AUTO 0 % (0-2); EOSINOPHILS PERCENT AUTO 1 % (0-6); Hematocrit 31.3 % (33.0-51.0); Hemoglobin 10.5 g/dL (11.5-16.0); IMMATURE GRAN ABSOLUTE AUTO 0.06 K/mm3 (0.00-0.10); IMMATURE GRAN PERCENT AUTO 1 % (0-1); LYMPHOCYTES ABSOLUTE AUTO 0.75 K/mm3 (0.84-5.20); LYMPHOCYTES PERCENT AUTO 8 % (21-46); MONOCYTES ABSOLUTE AUTO 0.73 K/mm3 (0.16-1.47); MONOCYTES PERCENT AUTO 8 % (4-13); Mean Corpuscular HGB 37.4 pg (26.0-34.0); Mean Corpuscular HGB Conc 33.5 g/dL (31.5-36.5); Mean Corpuscular Volume 111 fL (80-100); Mean Platelet Volume 10.6 fL (9.1-12.4); NEUTROPHILS ABSOLUTE AUTO 7.68 K/mm3 (1.96-9.15); NEUTROPHILS PERCENT AUTO 82 % (41-73); Platelet Count 412 K/mm3 (150-400); RDW Coefficient Variation 14.5 % (11.7-14.2); RDW Standard Deviation 59.3 fL (35.1-46.3); Red Blood Cell Count 2.81 M/mm3 (3.80-5.20); White Blood Cell Count 9.36 K/mm3 (4.00-11.30)
[2022-06-27 09:34] LABS: Albumin, Blood 2.3 g/dL (3.4-5.0); Albumin/Globulin Ratio 0.6 (0.8-1.8); Bilirubin, Total 0.5 mg/dL (0.1-1.0); Bun/Creatinine Ratio 13.4 (12.0-20.0); Calcium, Blood 8.1 mg/dL (8.5-10.1); Creatinine, Blood 0.6 mg/dL (0.40-1.00); Globulin, Blood 3.8 g/dL (2.2-4.0); Potassium, Blood 3.2 mmol/L (3.5-5.5); Total Protein, Blood 6.1 g/dL (6.4-8.2)
--- NOTE | 2022-06-27 14:01 | NUR ---
PATIENT IS COMPLAINING OF PAIN EVEN THOUGH SHE IS ON A DILAUDID ESTHETICIAN/SPA COORDINATOR WITH ESTHETICIAN/SPA COORDINATOR + CONTINUOUS. SHE REPORTS "MY PAIN IS BETTER WITH THE OXY AND DILAUDID!". THIS NURSE EDUCATED PATIENT HOW DR. AGUILAR WANTED TO SIMPLIFY HER PAIN MANAGEMENT TO JUST THE ESTHETICIAN/SPA COORDINATOR TO SEE HER OPIATE REQUIREMENTS FOR ORAL TRANSITION. PATIENT REFUSES TO LISTEN AND STATES "I ONLY WANT TO TALK WITH THE DOCTOR AND I WANT ANSWERS!". SHE IS AMBULATING WITHIN THE ROOM REORGANIZING HER ITEMS. SHE IS TOLERATING PO INTAKE AND IS VOIDING/PASSING GAS. CALL LIGHT WITHIN REACH. THIS NURSE LEFT A MESSAGE TO DR. ODOM AND WAITING FOR A RESPONSE.
--- NOTE | 2022-06-27 14:47 | NUR ---
DR. ODOM CAME BY AND TALKED WITH THE PATIENT. DR. ODOM IS CHANGING THE CONTINUOUS LIBERAL ARTS TEACHER DILAUDID RATE FROM 0.2-0.4 BUT THE REST OF THE LIBERAL ARTS TEACHER SETTINGS WILL STAY THE SAME TO TRY AND MANAGE PAIN BETTER. SHE WILL BE CONTINUING HER CLEAR LIQUID DIET TO TRY AND HAVE HER ABD PAIN IMPROVE. SHE IS SITTING UP IN THE CHAIR WITH CALL LIGHT IN REACH.
--- NOTE | 2022-06-27 15:56 | NUR ---
SHIFT SUMMARY: NO SIGNIFICANT CHANGES DURING SHIFT. PATIENT IS INDEP. IN THE ROOM. SHE IS TOLERATING PO INTAKE AND IS VOIDING. PATIENT HAS A DILAUDID PILOT BOAT CAPTAIN FOR PAIN WHICH THE CONTINUOUS RATE WAS INCREASED FROM 0.[address] ODOM ORDERS[address] PATIENT ALSO HAS A LIDOCAINE PATCH ON HER BACK. SHE WAS OFFERED ICE PACKS FOR BACK PAIN BUT SHE REFUSED. SHE IS TOLERATING PO INTAKE. SHE HAS A FEW RED SPOTS ON BOTH FOREARMS THAT ARE OPEN TO AIR AND DRY. HER CT OF ABD AND ULTRASOUND OF HER LEFT FOREARM RESULTS ARE BACK AND DR. AGUILAR IS AWARE. SHE IS WALKING AROUND IN THE ROOM AT THIS TIME. CALL LIGHT WITHIN REACH.
--- NOTE | 2022-06-27 23:56 | NUR ---
2330 PT MOVED TO MEDICAL FLOOR FOR CONTINUED MEDICAL MANAGEMENT. REPORT GIVEN TO BERNABE BRIDGES. PT AT BEGINNING OF SHIFT REPORTED NEW RASH. RASH NOTED ON BOTH LEGS AND ABD. PT HAS BEEN WALKING IN ROOM. PT WAS SEEN CRAWLING ACROSS BED TO USE BSC WITHOUT ISSUE BY THIS RN. PT REPORTS CONTINUED ABD DISCOMFORT, DESPITE WALKING AND VISITING WITH FAMILY.
--- NOTE | 2022-06-28 00:45 | NUR ---
ASSUMED CARE PT TRANSFERRED TO ROOM 336 FROM SURGICAL FLOOR. PT IS CURRENTLY AWAKE, A&O X4, WALKING AROUND IN HER ROOM GETTING SUPPLIES TOGETHER TO GIVE HER A PEDICURE AT THE BEDSIDE, IV ABX INFUSING, DILAUDID PHYSICIST SOLID STATE FOR PAIN, MULTIPLE CLEAR FLUID BEVERAGES REQUESTED & GIVEN. PT DENIES NAUSEA, PAIN WNL, NO OTHER REQUESTS AT THIS TIME, CALL LIGHT IN REACH,
[2022-06-28 06:30] LABS: BASOPHILS ABSOLUTE AUTO 0.05 K/mm3 (0.00-0.23); BASOPHILS PERCENT AUTO 1 % (0-2); EOSINOPHILS ABSOLUTE AUTO 0.12 K/mm3 (0.00-0.68); EOSINOPHILS PERCENT AUTO 2 % (0-6); Hematocrit 25.7 % (33.0-51.0); Hemoglobin 8.8 g/dL (11.5-16.0); IMMATURE GRAN ABSOLUTE AUTO 0.07 K/mm3 (0.00-0.10); IMMATURE GRAN PERCENT AUTO 1 % (0-1); LYMPHOCYTES ABSOLUTE AUTO 0.94 K/mm3 (0.84-5.20); LYMPHOCYTES PERCENT AUTO 15 % (21-46); MONOCYTES ABSOLUTE AUTO 0.54 K/mm3 (0.16-1.47); MONOCYTES PERCENT AUTO 8 % (4-13); Mean Corpuscular HGB 37.3 pg (26.0-34.0); Mean Corpuscular HGB Conc 34.2 g/dL (31.5-36.5); Mean Corpuscular Volume 109 fL (80-100); Mean Platelet Volume 10.2 fL (9.1-12.4); NEUTROPHILS ABSOLUTE AUTO 4.78 K/mm3 (1.96-9.15); NEUTROPHILS PERCENT AUTO 74 % (41-73); Platelet Count 369 K/mm3 (150-400); RDW Coefficient Variation 14.4 % (11.7-14.2); RDW Standard Deviation 57.1 fL (35.1-46.3); Red Blood Cell Count 2.36 M/mm3 (3.80-5.20)
[2022-06-28 06:50] LABS: Albumin/Globulin Ratio 0.6 (0.8-1.8); Bilirubin, Total 0.4 mg/dL (0.1-1.0); Bun/Creatinine Ratio 12.8 (12.0-20.0); Calcium, Blood 8.2 mg/dL (8.5-10.1); Creatinine, Blood 0.55 mg/dL (0.40-1.00); Globulin, Blood 3.2 g/dL (2.2-4.0); Potassium, Blood 3.5 mmol/L (3.5-5.5); Total Protein, Blood 5.2 g/dL (6.4-8.2)
--- NOTE | 2022-06-28 19:00 | NUR ---
PT IS A/OX4, COOPERATIVE, UP IND IN HER ROOM. PT APPEARS TO BE BREATHING EASILY ON RA. THE PTS DIET WAS ADVANCED T/O THE DAY. PT REPORTED TOLERATING THE ADVANCED DIET, HOWEVER, CONTINUES TO REPORT PAIN T/O THE DAY. PT WAS MEDICATED FOR PAIN T/O THE DAY. PT REPORTED FEELING ITCHY AND WAS MEDICATED FOR ITCHING WITH BENEDRYL PER HER REQUEST. PTS WAS AT THE BEDSIDE FOR MOST OF THE DAY. CALL LIGHT IN REACH. WILL CONTINUE TO MONITOR AND ASSESS FOR CHANGES.
--- NOTE | 2022-06-29 04:16 | NUR ---
SHIFT SUMMARY: Pt A/Ox4 and call light appropriate. No acute changes overnight. Pt had c/o pain in her feet from being slighly swollen (non-pitting), no abdominal pain. She denies nausea, SOB, numbness/tingling. IVF continue to infuse. Abx given per emar. She had quite a few snacks overnight and tolerated well.
[2022-06-29 07:39] LABS: BASOPHILS ABSOLUTE AUTO 0.04 K/mm3 (0.00-0.23); BASOPHILS PERCENT AUTO 1 % (0-2); EOSINOPHILS ABSOLUTE AUTO 0.12 K/mm3 (0.00-0.68); EOSINOPHILS PERCENT AUTO 2 % (0-6); Hematocrit 25.5 % (33.0-51.0); Hemoglobin 8.7 g/dL (11.5-16.0); IMMATURE GRAN ABSOLUTE AUTO 0.05 K/mm3 (0.00-0.10); IMMATURE GRAN PERCENT AUTO 1 % (0-1); LYMPHOCYTES ABSOLUTE AUTO 0.57 K/mm3 (0.84-5.20); LYMPHOCYTES PERCENT AUTO 8 % (21-46); MONOCYTES PERCENT AUTO 7 % (4-13); Mean Corpuscular HGB 37.2 pg (26.0-34.0); Mean Corpuscular HGB Conc 34.1 g/dL (31.5-36.5); Mean Corpuscular Volume 109 fL (80-100); Mean Platelet Volume 9.9 fL (9.1-12.4); NEUTROPHILS ABSOLUTE AUTO 5.98 K/mm3 (1.96-9.15); NEUTROPHILS PERCENT AUTO 82 % (41-73); Platelet Count 413 K/mm3 (150-400); RDW Coefficient Variation 14.6 % (11.7-14.2); RDW Standard Deviation 58.7 fL (35.1-46.3); Red Blood Cell Count 2.34 M/mm3 (3.80-5.20); White Blood Cell Count 7.26 K/mm3 (4.00-11.30)
[2022-06-29 07:55] LABS: Albumin, Blood 1.9 g/dL (3.4-5.0); Albumin/Globulin Ratio 0.6 (0.8-1.8); Bilirubin, Total 0.2 mg/dL (0.1-1.0); Bun/Creatinine Ratio 11.5 (12.0-20.0); Calcium, Blood 7.9 mg/dL (8.5-10.1); Creatinine, Blood 0.52 mg/dL (0.40-1.00); Globulin, Blood 3.4 g/dL (2.2-4.0); Potassium, Blood 3.5 mmol/L (3.5-5.5); Total Protein, Blood 5.3 g/dL (6.4-8.2)
[2022-06-29] MEDS ORDERED: ROXICODONE5 MG PO (18:14)
[2022-06-29] MEDS ORDERED: B-1100 M1 PO (18:15)
--- NOTE | 2022-06-29 19:55 | NUR ---
VS TAKEN. IV REMOVED AT 19:10. PT WHEELCHAIRED DOWN TO SPOUSE IN PARKING LOT AT 19:50.
--- NOTE | 2022-06-29 19:59 | NUR ---
shift summary PT IS A&0 X4. SHE IS IMPULSIVE AND IRRITABLE WITH STAFF. SHE IS FIXATED ON PAIN MEDICATION. PT TOLERATING PO INTAKE. ROOM AIR. INDEPENDENT IN ROOM. AT HER BEDSIDE THROUGH OUT MOST OF THE SHIFT. DR. BRANDON ROUNDED AND ORDERED 40MG IV LASIX AND TRIAMCINOLONE CREAM TO APPLY TO RASH ON LEGS. DISCHARGE TEACHING REVIEWED WITH PT. PHARMACIST PERFORMED MEDICATION EDUCATION FOR PT. GREEN SCRIPT SIGNED BY DR. BRANDON FOR OXYCODONE GIVEN TO PT, EXPLAINING THAT WE CANNOT REPLACE A LOST SCRIPT. PT VERBALIZED UNDERSTANDING OF DISCHARGE INSTRUCTIONS, NO FURTHER QUESTIONS AT THIS TIME. POWERGLIDE TO CARLIN REMOVED BY YULIANA LAWRENCE. JOINERY SETTER OUT WHEELED PT VIA WHEELCHAIR TO CARE OF HER , WITH ALL PERSONAL BELONGINGS RETURNED TO PT. .
== END 2022-06-29 19:15 | disposition home or self-care (01) | DRG 896 ==
LOC: ER 10:16 → MEDS 15:15 → ERHOLD 15:15 → ICUE 17:17 → SURS 06-23 01:31 → MEDS 06-27 23:27
PROVIDERS: Emergency Medicine; Internal Medicine; Physician Assistant; Student in an Organized Health Care Education/Training Program; ADMIT Family Medicine
PROC: HZ2ZZZZ Detoxification Services for Substance Abuse Treatment (ICD-10-PCS; principal; 2022-06-19)
DX: F10.239 Alcohol dependence with withdrawal, unspecified (principal); G92.8 Other toxic encephalopathy; K85.90 Acute pancreatitis without necrosis or infection, unspecified; J18.9 Pneumonia, unspecified organism; I82.612 Acute embolism and thrombosis of superficial veins of left upper extremity; Z20.822 Contact with and (suspected) exposure to COVID-19; F41.9 Anxiety disorder, unspecified; F32.A Depression, unspecified; D64.9 Anemia, unspecified; G89.29 Other chronic pain; F90.9 Attention-deficit hyperactivity disorder, unspecified type; Y90.0 Blood alcohol level of less than 20 mg/100 ml; Z90.49 Acquired absence of other specified parts of digestive tract; Z98.84 Bariatric surgery status; Z87.891 Personal history of nicotine dependence; Z79.899 Other long term (current) drug therapy
CPT/HCPCS: 0241U; 36415; 51702; 71045; 74177; 76882; 80053; 80069; 80202; 81001; 82803; 83690; 83735; 84100; 84484; 85025; 87040; 93005; 93010; 94640; 94664; 94760; 96374; 96375; 97161; 99285-25; A9270; G0480; J0692; J0696; J1170; J1650; J1885; J1940; J2060; J2270; J2310; J3370; J3411; J7030; J7050; Q9967

== ENCOUNTER 2023-01-27 19:55 | Emergency (ER) | payer OTHER ==
[~2023-01-27] VITALS: Ht 167.6 cm; Wt 69.8 kg
[~2023-01-27 19:55] MED LIST changes: +B-1100 M1 PO; +BUDESONIDE0.5 MG/2 M INH; +CATAPRES-TTS 11 EAC1 TOP; +CATAPRES0.1 MG PO; +Cyclobenzaprine5 MG PO; +DYAZIDE 37.5-21 EACH PO; +FOLI1 PO; +HYDPAM50 PO; +IBUP400 PO; +LATUDA20 M1 PO; +LORA.5 PO; +METO25ER PO; +METPHE20CR PO; +MODA200 PO; +NARA2.5; +NARATRIPTAN HCL1 MG PO; +NICO21TP TOP; +NICOTINE LOZENGE2 MG MM; +PROM25 PO; +Prozac40 MG PO; +SUBOXONE 8 MG-1 EACH SL; +SYMBICORT 160-4.6 GM INH; +TOPI100 PO; +TRAZ50 PO
[2023-01-27 22:00] VITALS: BP 122/78
== END 2023-01-27 22:10 | disposition home or self-care (01) ==
LOC: ER 19:55
DX: S01.01XA Laceration without foreign body of scalp, initial encounter (principal); S16.1XXA Strain of muscle, fascia and tendon at neck level, initial encounter; W10.9XXA Fall (on) (from) unspecified stairs and steps, initial encounter; Z87.891 Personal history of nicotine dependence; Z88.0 Allergy status to penicillin; Z88.5 Allergy status to narcotic agent; Z88.6 Allergy status to analgesic agent; Z79.51 Long term (current) use of inhaled steroids; Z79.899 Other long term (current) drug therapy
CPT/HCPCS: 12002; 70450; 72125; 96374-59; 96375-59; 99284-25; A9270; J2405; J3010

== ENCOUNTER 2023-07-19 01:26 | Emergency (ER) | payer OTHER ==
[~2023-07-19] VITALS: Ht 165.1 cm; Wt 74.8 kg
[2023-07-19 02:20] LABS: BASOPHILS ABSOLUTE AUTO 0.05 K/mm3 (0.00-0.23); BASOPHILS PERCENT AUTO 1 % (0-2); EOSINOPHILS ABSOLUTE AUTO 0.08 K/mm3 (0.00-0.68); EOSINOPHILS PERCENT AUTO 2 % (0-6); Hematocrit 42.3 % (33.0-51.0); Hemoglobin 13.4 g/dL (11.5-16.0); IMMATURE GRAN ABSOLUTE AUTO 0.02 K/mm3 (0.00-0.10); IMMATURE GRAN PERCENT AUTO 0 % (0-1); LYMPHOCYTES ABSOLUTE AUTO 1.58 K/mm3 (0.84-5.20); LYMPHOCYTES PERCENT AUTO 30 % (21-46); MONOCYTES ABSOLUTE AUTO 0.38 K/mm3 (0.16-1.47); MONOCYTES PERCENT AUTO 7 % (4-13); Mean Corpuscular HGB 32.3 pg (26.0-34.0); Mean Corpuscular HGB Conc 31.7 g/dL (31.5-36.5); Mean Corpuscular Volume 102 fL (80-100); Mean Platelet Volume 10.3 fL (9.1-12.4); NEUTROPHILS ABSOLUTE AUTO 3.21 K/mm3 (1.96-9.15); NEUTROPHILS PERCENT AUTO 60 % (41-73); Platelet Count 188 K/mm3 (150-400); RDW Coefficient Variation 12.7 % (11.7-14.2); RDW Standard Deviation 47.8 fL (35.1-46.3); Red Blood Cell Count 4.15 M/mm3 (3.80-5.20); White Blood Cell Count 5.32 K/mm3 (4.00-11.30)
[2023-07-19 02:30] VITALS: BP 118/78
[2023-07-19 02:55] LABS: Alanine Aminotransfer (ALT/SGP 23 U/L (12-78); Albumin, Blood 3.4 g/dL (3.4-5.0); Alk Phos 195 U/L (50-136); Anion Gap 3 mmol/L (6-16); Aspartate Aminotrans (AST/SGOT 30 U/L (12-37); Bilirubin, Total <0.1 mg/dL (0.1-1.0); Blood Urea Nitrogen 26 mg/dL (8-24); Bun/Creatinine Ratio 32.8 (12.0-20.0); CO2, Blood 27 mmol/L (21-32); Chloride, Blood 110 mmol/L (98-108); Creatinine, Blood 0.79 mg/dL (0.40-1.00); Globulin, Blood 3.5 g/dL (2.2-4.0); Glomerular Filtration Rate 88 (60-); Glucose, Blood 71 mg/dL (70-99); Potassium, Blood 3.9 mmol/L (3.5-5.5); Sodium, Blood 140 mmol/L (136-145); Total Protein, Blood 6.9 g/dL (6.4-8.2)
== END 2023-07-19 06:20 | disposition home or self-care (01) ==
LOC: ER 01:26
PROVIDERS: Emergency Medicine
DX: S01.01XA Laceration without foreign body of scalp, initial encounter (principal); Z87.891 Personal history of nicotine dependence; Z79.899 Other long term (current) drug therapy; Z88.0 Allergy status to penicillin; Z88.5 Allergy status to narcotic agent; Z88.6 Allergy status to analgesic agent; Y92.59 Other trade areas as the place of occurrence of the external cause
CPT/HCPCS: 70450; 80053; 85025; 99284-25

== ENCOUNTER 2023-08-01 18:59 | Emergency (ER) | payer OTHER ==
[~2023-08-01] VITALS: Ht 167.6 cm; Wt 75.3 kg
[2023-08-01 22:48] VITALS: BP 125/89
== END 2023-08-01 22:49 | disposition home or self-care (01) ==
LOC: ER 18:59
DX: S01.112A Laceration without foreign body of left eyelid and periocular area, initial encounter (principal); G47.419 Narcolepsy without cataplexy; F30.9 Manic episode, unspecified; Z79.899 Other long term (current) drug therapy; Z79.51 Long term (current) use of inhaled steroids; Z88.0 Allergy status to penicillin; Z88.5 Allergy status to narcotic agent; Z88.6 Allergy status to analgesic agent; W05.0XXA Fall from non-moving wheelchair, initial encounter
CPT/HCPCS: 12011; 70486; 99284-25

== ENCOUNTER 2023-08-09 18:55 | Emergency (ER) | payer OTHER ==
[~2023-08-09] VITALS: Ht 167.6 cm; Wt 76.7 kg
[2023-08-09 19:24] VITALS: BP 167/136
[2023-08-09] MEDS ORDERED: IBUP600 PO (21:23)
[2023-08-09] MEDS ORDERED: ACET500 PO (21:23)
== END 2023-08-09 21:50 | disposition home or self-care (01) ==
LOC: ER 18:55
DX: S70.11XA Contusion of right thigh, initial encounter (principal); S40.021A Contusion of right upper arm, initial encounter; S01.112D Laceration without foreign body of left eyelid and periocular area, subsequent encounter; G47.419 Narcolepsy without cataplexy; F41.9 Anxiety disorder, unspecified; L98.9 Disorder of the skin and subcutaneous tissue, unspecified; W18.30XA Fall on same level, unspecified, initial encounter
CPT/HCPCS: 99283; A9270

== ENCOUNTER 2023-08-12 14:09 | Emergency (ER) | payer OTHER ==
[~2023-08-12] VITALS: Ht 167.6 cm; Wt 76.7 kg
[~2023-08-12 14:09] MED LIST changes: +IBUP600 PO
[2023-08-12] MEDS ORDERED: Cephalexin Monohydrate 500 MG Cap PO ONE (18:10)
[2023-08-12] MEDS ORDERED: CEPH500 PO (18:10)
[2023-08-12 18:15] VITALS: BP 115/87
== END 2023-08-12 18:20 | disposition home or self-care (01) ==
LOC: ER 14:09
DX: R51.9 Headache, unspecified (principal); F41.9 Anxiety disorder, unspecified; F31.9 Bipolar disorder, unspecified; G47.419 Narcolepsy without cataplexy; Z88.0 Allergy status to penicillin; Z88.5 Allergy status to narcotic agent; Z88.6 Allergy status to analgesic agent; Z79.899 Other long term (current) drug therapy; Z79.51 Long term (current) use of inhaled steroids; Z87.891 Personal history of nicotine dependence
CPT/HCPCS: 70450; 99283-25; A9270

== ENCOUNTER 2023-08-30 02:17 | Emergency (ER) | payer OTHER ==
[~2023-08-30] VITALS: Ht 162.6 cm; Wt 72.6 kg
[2023-08-30 03:33] LABS: BASOPHILS ABSOLUTE AUTO 0.03 K/mm3 (0.00-0.23); BASOPHILS PERCENT AUTO 1 % (0-2); Base Excess Venous -0.4 mmol/L; EOSINOPHILS ABSOLUTE AUTO 0.08 K/mm3 (0.00-0.68); EOSINOPHILS PERCENT AUTO 1 % (0-6); Hematocrit 36.4 % (33.0-51.0); Hemoglobin 11.9 g/dL (11.5-16.0); IMMATURE GRAN ABSOLUTE AUTO 0.01 K/mm3 (0.00-0.10); IMMATURE GRAN PERCENT AUTO 0 % (0-1); LYMPHOCYTES PERCENT AUTO 20 % (21-46); MONOCYTES ABSOLUTE AUTO 0.42 K/mm3 (0.16-1.47); MONOCYTES PERCENT AUTO 8 % (4-13); Mean Corpuscular HGB 31.8 pg (26.0-34.0); Mean Corpuscular HGB Conc 32.7 g/dL (31.5-36.5); Mean Corpuscular Volume 97 fL (80-100); Mean Platelet Volume 9.8 fL (9.1-12.4); NEUTROPHILS ABSOLUTE AUTO 3.91 K/mm3 (1.96-9.15); NEUTROPHILS PERCENT AUTO 71 % (41-73); Platelet Count 175 K/mm3 (150-400); RDW Coefficient Variation 12.3 % (11.7-14.2); RDW Standard Deviation 43.8 fL (35.1-46.3); Red Blood Cell Count 3.74 M/mm3 (3.80-5.20); White Blood Cell Count 5.55 K/mm3 (4.00-11.30); pH Blood Venous 7.39 (7.34-7.37)
[2023-08-30 04:00] LABS: Magnesium, Blood 2.2 mg/dL (1.6-2.4); Salicylate 1.8 mg/dL (2.8-20.0)
[2023-08-30 04:01] LABS: Acetaminophen, Random <2.0 ug/mL (10.0-30.0)
[2023-08-30 04:29] LABS: Alanine Aminotransfer (ALT/SGP 21 U/L (12-78); Albumin, Blood 3.2 g/dL (3.4-5.0); Alk Phos 169 U/L (50-136); Anion Gap Unable to Calculate mmol/L (6-16); Aspartate Aminotrans (AST/SGOT 27 U/L (12-37); Bilirubin, Total 0.2 mg/dL (0.1-1.0); Blood Urea Nitrogen 24 mg/dL (8-24); Bun/Creatinine Ratio 33.6 (12.0-20.0); CO2, Blood 30 mmol/L (21-32); Calcium, Blood 8.7 mg/dL (8.5-10.1); Chloride, Blood 109 mmol/L (98-108); Creatinine, Blood 0.72 mg/dL (0.40-1.00); Globulin, Blood 3.2 g/dL (2.2-4.0); Glomerular Filtration Rate 98 (60-); Glucose, Blood 103 mg/dL (70-99); Phosphorus, Blood 4.3 mg/dL (2.5-4.9); Potassium, Blood 3.5 mmol/L (3.5-5.5); Sodium, Blood 138 mmol/L (136-145); Total Protein, Blood 6.4 g/dL (6.4-8.2)
[2023-08-30 04:52] LABS: Source, Urine Clean Catch
[2023-08-30 04:57] LABS: Bilirubin, Urine Neg (Neg); Blood, Urine Neg (Neg); Glucose Qualitative, Urine Neg (Neg); Ketones, Urine Neg (Neg); Leukocyte Esterase, Urine 1+ (Neg); Nitrite, Urine Neg (Neg); Protein, Urine Neg (Neg); Urobilinogen, Urine NORM (Normal)
[2023-08-30 05:16] LABS: Appearance, Urine Cloudy (Clear); Color, Urine Yellow (P-Yellow)
[2023-08-30 05:17] LABS: Red Blood Cells, Urine 0-2 /hpf (0-2); Squamous Epithelial Cells Many /hpf (Few)
[2023-08-30 05:18] LABS: Bacteria Mod /hpf
[2023-08-30 05:30] LABS: U Amphetamine Screen DETECTED; U Benzodiazapine Screen DETECTED; U Buprenorphine Screen DETECTED; U Methamphetamine Screen DETECTED
[2023-08-30 05:31] LABS: U Barbituate Screen Not Detected; U Cannabinoids Screen Not Detected; U Cocaine Screen Not Detected; U Methadone Screen Not Detected; U Opiates Screen Not Detected; U Oxycodone Screen Not Detected; U Phencyclidine Screen Not Detected
[2023-08-30] MEDS ORDERED: Acetaminophen 500 MG Tab PO ONE (05:50)
[2023-08-30 06:00] VITALS: BP 118/91
== END 2023-08-30 06:15 | disposition home or self-care (01) ==
LOC: ER 02:17
PROVIDERS: Emergency Medicine
DX: S02.31XA Fracture of orbital floor, right side, initial encounter for closed fracture (principal); F19.10 Other psychoactive substance abuse, uncomplicated; W01.198A Fall on same level from slipping, tripping and stumbling with subsequent striking against other object, initial encounter; Z88.0 Allergy status to penicillin; Z88.5 Allergy status to narcotic agent; Z88.6 Allergy status to analgesic agent; Z79.899 Other long term (current) drug therapy; Z87.891 Personal history of nicotine dependence
CPT/HCPCS: 70450; 70486; 71045; 72125; 72170; 73560-LT; 80053; 81001; 82140; 82803; 83605; 83735; 84100; 84443; 84484; 85025; 93005; 93010; 99285-25; A9270; G0480; L0160

== ENCOUNTER 2024-03-15 05:50 | Emergency (ER) | payer OTHER ==
[~2024-03-15] VITALS: Ht 165.1 cm; Wt 120.2 kg
[~2024-03-15 05:50] MED LIST changes: +Cleocin HCl150 MG PO; +ONDA4 PO; +OXYC10ER PO; +PERCOCET 10-321 EA10 PO; +Percocet 10-321 EACH PO
[2024-03-15] MEDS ORDERED: NS 1,000 ML IV SCH (06:20)
[2024-03-15] MEDS ORDERED: Thiamine HCl 100 MG in NS 50 ML IV ONE (06:20)
[2024-03-15] MEDS ORDERED: Folic Acid 1 MG in NS 50 ML IV ONE (06:20)
[2024-03-15] MEDS ORDERED: Albuterol 2.5 MG/3 ML VIAL INH SCH (07:10)
[2024-03-15] MEDS ORDERED: MethylPREDNISolone Sod Succ 125 MG Vial IV ONE (07:10)
[2024-03-15] MEDS ORDERED: Magnesium Sulf 2 GM/Water 50ML 50 ML IV ONE (07:10)
[2024-03-15] MEDS ORDERED: Ketorolac Tromethamine 15mg Vial IV ONE (07:25)
[2024-03-15] MEDS ORDERED: FentaNYL Citrate 50 MCG/ML 2 ML Injection IV ONE (07:25)
[2024-03-15 07:41] LABS: BASOPHILS ABSOLUTE AUTO 0.02 K/mm3 (0.00-0.23); BASOPHILS PERCENT AUTO 0 % (0-2); EOSINOPHILS ABSOLUTE AUTO 0.08 K/mm3 (0.00-0.68); EOSINOPHILS PERCENT AUTO 2 % (0-6); Hemoglobin 11.8 g/dL (11.5-16.0); IMMATURE GRAN ABSOLUTE AUTO 0.01 K/mm3 (0.00-0.10); IMMATURE GRAN PERCENT AUTO 0 % (0-1); LYMPHOCYTES ABSOLUTE AUTO 1.08 K/mm3 (0.84-5.20); LYMPHOCYTES PERCENT AUTO 22 % (21-46); MONOCYTES PERCENT AUTO 8 % (4-13); Mean Corpuscular HGB 32.1 pg (26.0-34.0); Mean Corpuscular HGB Conc 32.8 g/dL (31.5-36.5); Mean Corpuscular Volume 98 fL (80-100); Mean Platelet Volume 10.1 fL (9.1-12.4); NEUTROPHILS ABSOLUTE AUTO 3.33 K/mm3 (1.96-9.15); NEUTROPHILS PERCENT AUTO 68 % (41-73); Platelet Count 161 K/mm3 (150-400); RDW Coefficient Variation 14.4 % (11.7-14.2); RDW Standard Deviation 51.8 fL (35.1-46.3); Red Blood Cell Count 3.68 M/mm3 (3.80-5.20); White Blood Cell Count 4.92 K/mm3 (4.00-11.30)
[2024-03-15 07:48] LABS: Bun/Creatinine Ratio 18.8 (12.0-20.0); Calcium, Blood 8.8 mg/dL (8.5-10.1); Creatinine, Blood 0.85 mg/dL (0.40-1.00); Potassium, Blood 3.4 mmol/L (3.5-5.5)
[2024-03-15 10:00] VITALS: BP 112/87
== END 2024-03-15 10:05 | disposition short-term general hospital (02) ==
LOC: ER 05:50
PROVIDERS: Emergency Medicine
DX: S02.609A Fracture of mandible, unspecified, initial encounter for closed fracture (principal); F17.210 Nicotine dependence, cigarettes, uncomplicated; W07.XXXA Fall from chair, initial encounter; Z79.52 Long term (current) use of systemic steroids; Z79.899 Other long term (current) drug therapy; Z88.0 Allergy status to penicillin; Z88.5 Allergy status to narcotic agent; Z88.6 Allergy status to analgesic agent
CPT/HCPCS: 70450; 70486; 72125; 73070; 73560-LT; 73560-RT; 80048; 80320; 85025; J3411; J7030

== ENCOUNTER → 2024-03-26 | Outpatient (CLI) | payer OTHER ==
[2024-04-03 10:43] LABS: Stool Occult Bld Immuno 1 Negative (NEGATIVE)
== END ==
LOC: LAB 14:21 → LAB SHORT 14:21
DX: Z12.11 Encounter for screening for malignant neoplasm of colon (principal); Z12.12 Encounter for screening for malignant neoplasm of rectum
CPT/HCPCS: G0328

== ENCOUNTER 2024-06-03 04:41 | Emergency (ER) | payer OTHER ==
[~2024-06-03] VITALS: Ht 160 cm; Wt 68.0 kg
[2024-06-03 05:16] LABS: BASOPHILS ABSOLUTE AUTO 0.04 K/mm3 (0.00-0.23); BASOPHILS PERCENT AUTO 1 % (0-2); EOSINOPHILS ABSOLUTE AUTO 0.08 K/mm3 (0.00-0.68); EOSINOPHILS PERCENT AUTO 1 % (0-6); Hematocrit 32.2 % (33.0-51.0); Hemoglobin 9.8 g/dL (11.5-16.0); IMMATURE GRAN ABSOLUTE AUTO 0.01 K/mm3 (0.00-0.10); IMMATURE GRAN PERCENT AUTO 0 % (0-1); LYMPHOCYTES ABSOLUTE AUTO 1.12 K/mm3 (0.84-5.20); LYMPHOCYTES PERCENT AUTO 20 % (21-46); MONOCYTES ABSOLUTE AUTO 0.47 K/mm3 (0.16-1.47); MONOCYTES PERCENT AUTO 8 % (4-13); Mean Corpuscular HGB 28.7 pg (26.0-34.0); Mean Corpuscular HGB Conc 30.4 g/dL (31.5-36.5); Mean Corpuscular Volume 94 fL (80-100); Mean Platelet Volume 10.3 fL (9.1-12.4); NEUTROPHILS ABSOLUTE AUTO 3.86 K/mm3 (1.96-9.15); NEUTROPHILS PERCENT AUTO 69 % (41-73); Platelet Count 198 K/mm3 (150-400); RDW Standard Deviation 48.3 fL (35.1-46.3); Red Blood Cell Count 3.41 M/mm3 (3.80-5.20); White Blood Cell Count 5.58 K/mm3 (4.00-11.30)
[2024-06-03 05:28] LABS: Albumin, Blood 3.1 g/dL (3.4-5.0); Albumin/Globulin Ratio 0.9 (0.8-1.8); Bilirubin, Total 0.2 mg/dL (0.1-1.0); Bun/Creatinine Ratio 18.9 (12.0-20.0); Calcium, Blood 8.1 mg/dL (8.5-10.1); Creatinine, Blood 0.85 mg/dL (0.40-1.00); Globulin, Blood 3.3 g/dL (2.2-4.0); Potassium, Blood 3.8 mmol/L (3.5-5.5); Total Protein, Blood 6.4 g/dL (6.4-8.2)
[2024-06-03 08:55] VITALS: BP 98/67
== END 2024-06-03 09:39 | disposition home or self-care (01) ==
LOC: ER 04:41
PROVIDERS: Emergency Medicine
DX: S09.90XA Unspecified injury of head, initial encounter (principal); S40.022A Contusion of left upper arm, initial encounter; S50.12XA Contusion of left forearm, initial encounter; S20.211A Contusion of right front wall of thorax, initial encounter; W01.0XXA Fall on same level from slipping, tripping and stumbling without subsequent striking against object, initial encounter; Z79.899 Other long term (current) drug therapy; Z79.51 Long term (current) use of inhaled steroids; Z88.0 Allergy status to penicillin; Z88.5 Allergy status to narcotic agent; Z88.6 Allergy status to analgesic agent
CPT/HCPCS: 70450; 73060; 80053; 85025; 99284-25

== ENCOUNTER 2024-09-28 03:28 | Emergency (ER) | payer OTHER ==
[~2024-09-28] VITALS: Ht 165.1 cm; Wt 77.1 kg
[2024-09-28 03:39] VITALS: BP 120/84
== END 2024-09-28 05:37 | disposition home or self-care (01) ==
LOC: ER 03:28
DX: S01.111A Laceration without foreign body of right eyelid and periocular area, initial encounter (principal); G47.419 Narcolepsy without cataplexy; F17.210 Nicotine dependence, cigarettes, uncomplicated; Z88.0 Allergy status to penicillin; Z88.5 Allergy status to narcotic agent; Z88.6 Allergy status to analgesic agent; Z79.51 Long term (current) use of inhaled steroids; Z79.899 Other long term (current) drug therapy; W22.8XXA Striking against or struck by other objects, initial encounter
CPT/HCPCS: 12052; 70450; 99283-25

== ENCOUNTER 2024-11-14 18:56 | Emergency (ER) | payer OTHER ==
[~2024-11-14] VITALS: Ht 167.6 cm; Wt 74.4 kg
[2024-11-14 21:00] VITALS: BP 107/73
[2024-11-14] MEDS ORDERED: ACET500 PO (21:12)
== END 2024-11-14 21:23 | disposition home or self-care (01) ==
LOC: ER 18:56
DX: S01.81XA Laceration without foreign body of other part of head, initial encounter (principal); Z88.0 Allergy status to penicillin; Z88.5 Allergy status to narcotic agent; Z79.899 Other long term (current) drug therapy; Z79.2 Long term (current) use of antibiotics; F17.210 Nicotine dependence, cigarettes, uncomplicated; W22.8XXA Striking against or struck by other objects, initial encounter
CPT/HCPCS: 12002; 70450; 93005; 93010; 99283-25

== ENCOUNTER 2024-12-07 05:13 | Emergency (ER) | payer OTHER ==
[~2024-12-07] VITALS: Ht 167.6 cm; Wt 76.7 kg
[2024-12-07 06:41] VITALS: BP 116/82
[2024-12-07] MEDS ORDERED: Modafinil 200 MG Tab PO ONE (08:05)
== END 2024-12-07 10:00 | disposition home or self-care (01) ==
LOC: ER 05:13
DX: S01.01XA Laceration without foreign body of scalp, initial encounter (principal); G47.419 Narcolepsy without cataplexy; F17.210 Nicotine dependence, cigarettes, uncomplicated; Z88.0 Allergy status to penicillin; Z88.5 Allergy status to narcotic agent; Z88.6 Allergy status to analgesic agent; Z79.899 Other long term (current) drug therapy; W19.XXXA Unspecified fall, initial encounter
CPT/HCPCS: 12002; 70450; 99283-25; A9270

== ENCOUNTER 2025-02-28 00:56 | Emergency (ER) | payer OTHER ==
[~2025-02-28] VITALS: Ht 165.1 cm; Wt 76.2 kg
[2025-02-28 02:29] LABS: BASOPHILS ABSOLUTE AUTO 0.03 K/mm3 (0.00-0.23); BASOPHILS PERCENT AUTO 1 % (0-2); EOSINOPHILS ABSOLUTE AUTO 0.12 K/mm3 (0.00-0.68); EOSINOPHILS PERCENT AUTO 2 % (0-6); Hematocrit 32.2 % (33.0-51.0); Hemoglobin 10.4 g/dL (11.5-16.0); IMMATURE GRAN ABSOLUTE AUTO 0.01 K/mm3 (0.00-0.10); IMMATURE GRAN PERCENT AUTO 0 % (0-1); LYMPHOCYTES ABSOLUTE AUTO 1.39 K/mm3 (0.84-5.20); LYMPHOCYTES PERCENT AUTO 26 % (21-46); MONOCYTES ABSOLUTE AUTO 0.52 K/mm3 (0.16-1.47); MONOCYTES PERCENT AUTO 10 % (4-13); Mean Corpuscular HGB Conc 32.3 g/dL (31.5-36.5); Mean Corpuscular Volume 90 fL (80-100); NEUTROPHILS ABSOLUTE AUTO 3.29 K/mm3 (1.96-9.15); NEUTROPHILS PERCENT AUTO 61 % (41-73); NRBC ABSOLUTE 0.00 K/mm3 (0.00-0.02); NRBC Auto 0.0 /100 WBC (0.0-0.2); Platelet Count 184 K/mm3 (150-400); RDW Coefficient Variation 14.7 % (11.7-14.2); RDW Standard Deviation 48.6 fL (35.1-46.3)
[2025-02-28 02:47] LABS: Alanine Aminotransfer (ALT/SGP 23 U/L (12-78); Albumin, Blood 3.2 g/dL (3.4-5.0); Albumin/Globulin Ratio 0.9 (0.8-1.8); Anion Gap 8 mmol/L (3-11); Aspartate Aminotrans (AST/SGOT 35 U/L (12-37); Bilirubin, Total 0.3 mg/dL (0.1-1.0); Blood Urea Nitrogen 14 mg/dL (8-24); CO2, Blood 25 mmol/L (21-32); Calcium, Blood 8.0 mg/dL (8.5-10.1); Chloride, Blood 111 mmol/L (98-108); Creatinine, Blood 0.67 mg/dL (0.40-1.00); Ethanol (Alcohol), Blood, Med <3 mg/dL; Globulin, Blood 3.4 g/dL (2.2-4.0); Glucose, Blood 97 mg/dL (70-99); Potassium, Blood 3.6 mmol/L (3.5-5.5); Sodium, Blood 140 mmol/L (136-145); Total Protein, Blood 6.6 g/dL (6.4-8.2)
[2025-02-28 03:18] LABS: Acetaminophen, Random <2.0 ug/mL (10.0-30.0); Salicylate <1.7 mg/dL (2.8-20.0)
[2025-02-28 03:38] LABS: pH Blood Venous 7.35 (7.34-7.37)
[2025-02-28 05:00] VITALS: BP 103/71
== END 2025-02-28 05:55 | disposition home or self-care (01) ==
LOC: ER 00:56
PROVIDERS: Emergency Medicine
DX: S96.911A Strain of unspecified muscle and tendon at ankle and foot level, right foot, initial encounter (principal); S70.02XA Contusion of left hip, initial encounter; W01.0XXA Fall on same level from slipping, tripping and stumbling without subsequent striking against object, initial encounter; F17.210 Nicotine dependence, cigarettes, uncomplicated; Z79.899 Other long term (current) drug therapy; Z79.51 Long term (current) use of inhaled steroids; Z88.0 Allergy status to penicillin; Z88.5 Allergy status to narcotic agent; Z88.6 Allergy status to analgesic agent
CPT/HCPCS: 70450; 71045; 73502; 73620; 80053; 80320; 82140; 82803; 85025; 93005; 93010; 99284-25; G0480

== ENCOUNTER 2025-04-11 05:23 | Emergency (ER) | payer OTHER ==
[~2025-04-11] VITALS: Ht 165.1 cm; Wt 74.8 kg
[2025-04-11] MEDS ORDERED: DOXY100 PO (07:49)
[2025-04-11] MEDS ORDERED: MUPIROCIN2210 TOP (07:49)
[2025-04-11 08:00] VITALS: BP 132/94
== END 2025-04-11 08:35 | disposition home or self-care (01) ==
LOC: ER 05:23
DX: S00.83XA Contusion of other part of head, initial encounter (principal); S20.319A Abrasion of unspecified front wall of thorax, initial encounter; L01.00 Impetigo, unspecified; F17.210 Nicotine dependence, cigarettes, uncomplicated; Z88.0 Allergy status to penicillin; Z88.5 Allergy status to narcotic agent; Z88.6 Allergy status to analgesic agent; Z79.51 Long term (current) use of inhaled steroids; Z79.899 Other long term (current) drug therapy; W01.198A Fall on same level from slipping, tripping and stumbling with subsequent striking against other object, initial encounter
CPT/HCPCS: 70450; 70486; 71046; 72125; 90471; 90715; 99284-25

== ENCOUNTER → 2025-04-16 | Outpatient (CLI) | payer OTHER ==
[~2025-04-16] MED LIST changes: +DOXY100 PO; +MUPIROCIN2210 TOP
[2025-04-16 16:04] LABS: U Amphetamine Screen Not Detected; U Barbiturate Screen Not Detected; U Benzodiazapine Screen DETECTED; U Buprenorphine Screen DETECTED; U Cannabinoids Screen Not Detected; U Cocaine Screen Not Detected; U Methadone Screen Not Detected; U Methamphetamine Screen Not Detected; U Opiates Screen Not Detected; U Oxycodone Screen DETECTED; U Phencyclidine Screen Not Detected
[2025-04-20 11:49] LABS: 7-AMINOCLONAZEPAM, URN, QUANT <5 ng/mL; A-HYDROXYALPRAZOLAM, URN, QNT <5 ng/mL; A-HYDROXYMIDAZOLAM, URN, QNT <20 ng/mL; ALPRAZOLAM, URN, QUANT <5 ng/mL; CHLORDIAZEPOXIDE, URN, QUANT <20 ng/mL; CLONAZEPAM, URN, QUANT <5 ng/mL; DIAZEPAM, URN, QUANT <20 ng/mL; LORAZEPAM, URN, QUANT <20 ng/mL; MIDAZOLAM, URN, QUANT <20 ng/mL; NORDIAZEPAM, URN, QUANT <20 ng/mL; OXAZEPAM, URN, QUANT <20 ng/mL; TEMAZEPAM, URN, QUANT <20 ng/mL
[2025-04-21 00:37] LABS: BUPRENORPHINE GLUC,URN,QUANT <5 ng/mL; BUPRENORPHINE,URN,QUANT >1000 ng/mL; NALOXONE,URN,QUANT >1000 ng/mL; NORBUPRENORPHINE GLUC,UR,QUANT <5 ng/mL; NORBUPRENORPHINE,URN,QUANT 35 ng/mL
[2025-04-21 22:10] LABS: 6-ACETYLMORPHINE, URN, QUANT <10 ng/mL; CODEINE, URN, QUANT <20 ng/mL; HYDROCODONE, URN, QUANT <20 ng/mL; HYDROMORPHONE, URN, QUANT <20 ng/mL; MORPHINE, URN, QUANT <20 ng/mL; NORHYDROCODONE, URN, QUANT <20 ng/mL; NOROXYCODONE, URN, QUANT <20 ng/mL; NOROXYMORPHONE, URN, QUANT 28 ng/mL; OXYCODONE, URN, QUANT <20 ng/mL; OXYMORPHONE, URN, QUANT <20 ng/mL
== END ==
LOC: LAB 15:04 → LAB SHORT 15:04
PROVIDERS: Nurse Practitioner Psychiatric/Mental Health
DX: F90.2 Attention-deficit hyperactivity disorder, combined type (principal)
CPT/HCPCS: G0480; G0481